=== PATIENT | male | born 1965 | race Caucasian/White ===

== ENCOUNTER 2016-12-10 10:46 | Inpatient (IN) | payer OTHER ==
[~2016-12-10] VITALS: Ht 175.3 cm; Wt 73.3 kg
[2016-12-10 12:20] LABS: BASOPHILS % (AUTO) 0.6 % (0.0-2.0); EOSINOPHILS % (AUTO) 1.7 % (1.0-6.0); HEMATOCRIT 49.6 % (41-53); HEMOGLOBIN 16.1 g/dL (13.5-17.5); MEAN CORPUSCULAR HEMOGLOBIN 31.2 pg (26.0-34.0); MEAN CORPUSCULAR HGB CONC 32.5 G/dL (31.0-37.0); MEAN CORPUSCULAR VOLUME 96 fL (80-100); MONOCYTES # (AUTO) 0.8 K/uL (0.1-1.0); MONOCYTES % (AUTO) 7.6 % (2.0-9.0); NEUTROPHILS % (AUTO) 70.1 % (40.0-70.0); PLATELET COUNT (AUTO) 301 K/uL (150-450); RED BLOOD CELL COUNT(AUTO) 5.18 MIL/uL (4.50-5.90); RED CELL DISTRIBUTION WIDTH 13.5 % (11.5-14.5)
[2016-12-10 12:28] LABS: ANION GAP 6 mmol/L (8-16); CARBON DIOXIDE 29 mmol/L (22-29); CHLORIDE 104 mmol/L (98-107); CREATININE 1.04 mg/dL (0.60-1.30); GLOMERULAR FILTR. RATE CALC > 60 mL/min (>60); INR 1.1 (0.9-1.1); PROTHROMBIN TIME 11.4 SEC (9.4-11.6); SODIUM SERUM 139 mmol/L (136-145); UREA NITROGEN, BLOOD 13 mg/dL (7-18)
[2016-12-10 12:44] LABS: B-TYPE NATRIURETIC PEPTIDE 415 pg/mL (0-100)
[2016-12-10 12:52] LABS: ALANINE AMINOTRANSFERASE 56 U/L (12-78); ALBUMIN 3.5 g/dL (3.4-5.0); ASPARTATE AMINOTRANSFERASE 25 U/L (15-37); CREATINE KINASE MB 4.7 ng/mL (0-5); CREATINE KINASE, TOTAL 175 U/L (39-308); TOTAL PROTEIN, SERUM 6.7 g/dL (6.4-8.2)
[2016-12-10] MEDS ORDERED: FUROSEMIDE 40 MG/4 ML VIAL IVP ONE (13:15)
[2016-12-10] MEDS ORDERED: ACETAMINOPHEN 325 MG TABLET PO PRN ×2 (14:15→16:00)
[2016-12-10] MEDS ORDERED: ONDANSETRON HCL 4 MG/2 ML VIAL IVP PRN ×2 (14:15→16:00)
[2016-12-10] MEDS ORDERED: 0.9% SODIUM CHLORIDE 10 ML SYRINGE IVP PRN (14:15)
[2016-12-10 14:34] LABS: APPEARANCE,URINE CLEAR (CLEAR); GLUCOSE, URINE (UA) NEGATIVE (NEGATIVE); KETONES,URINE NEGATIVE (NEGATIVE); LEUKOCYTE ESTERASE ,URINE NEGATIVE (NEGATIVE); OCCULT BLOOD,URINE NEGATIVE (NEGATIVE); PH,URINE 6.5 (5.0-8.0); PROTEIN,URINE POS 1+ (NEGATIVE)
[2016-12-10 14:36] LABS: ADD UA MICROSCOPIC NO
[2016-12-10] MEDS ORDERED: BISACODYL 10 MG RECTAL RECTAL SUPPOSITORY PR PRN (16:00)
[2016-12-10] MEDS ORDERED: MORPHINE SULFATE 2 MG/ML SYRINGE IVP PRN (16:00)
[2016-12-10] MEDS ORDERED: MAGNESIUM HYDROXIDE SUSPENSION 30 ML UDCUP PO PRN (16:00)
[2016-12-10] MEDS: HEPARIN SODIUM,PORCINE 5,000 UNITS/ML VIAL SQ SCH ×2 (16:11→23:27)
[2016-12-10 18:44] VITALS: BP 112/80
[2016-12-10 19:29] VITALS: BP 136/89
[2016-12-10] MEDS: FUROSEMIDE 20 MG/2 ML VIAL IVP SCH (20:40)
[2016-12-10] MEDS: ZOLPIDEM TARTRATE 5 MG TABLET PO PRN (20:40)
[2016-12-10] MEDS: DOCUSATE SODIUM 100 MG CAPSULE PO SCH (20:40)
[2016-12-10 23:00] VITALS: BP 100/75
[2016-12-10 23:26] VITALS: BP 100/75
[2016-12-11 04:41] VITALS: BP 123/75
[2016-12-11 07:07] VITALS: BP 121/89
[2016-12-11] MEDS: DOCUSATE SODIUM 100 MG CAPSULE PO SCH ×2 (08:11→21:03)
[2016-12-11] MEDS: FUROSEMIDE 20 MG/2 ML VIAL IVP SCH ×2 (08:12→21:03)
[2016-12-11] MEDS: ASPIRIN 81 MG EC TABLET PO SCH (08:12)
[2016-12-11] MEDS: HEPARIN SODIUM,PORCINE 5,000 UNITS/ML VIAL SQ SCH ×3 (08:12→23:19)
[2016-12-11] MEDS: PANTOPRAZOLE SODIUM 40 MG DR TABLET PO SCH (08:12)
[2016-12-11] MEDS: LISINOPRIL 5 MG TABLET PO SCH (08:12)
[2016-12-11] MEDS: NICOTINE 21 MG/24 HOUR PATCH TD SCH (09:00)
[2016-12-11 11:05] VITALS: BP 106/73
[2016-12-11 11:24] LABS: ABG A-A DIFF O2 35.3 mmHg (10-20.0); ABG HCO3 28.6 mmol/L (22.0-26.0); ABG OXYHEMOGLOBIN 93.8 % (94.0-100.0); ABG PCO2 39 mmHg (35-45); ABG PH 7.479 (7.35-7.450); TEMPERATURE, FAHRENHEIT, BG 97.8 FAHREN (96.0-98.6)
[2016-12-11 11:25] LABS: ALLEN TEST, BLOOD GAS Positive
[2016-12-11 16:03] VITALS: BP 100/61
[2016-12-11 20:24] VITALS: BP 105/75
[2016-12-11] MEDS: ZOLPIDEM TARTRATE 5 MG TABLET PO PRN (23:19)
[2016-12-12] VITALS (14 sets, daily range): BP systolic 90–123; BP diastolic 63–83
[2016-12-12 07:20] LABS: ALANINE AMINOTRANSFERASE 41 U/L (12-78); ALBUMIN 3.2 g/dL (3.4-5.0); ANION GAP 8 mmol/L (8-16); ASPARTATE AMINOTRANSFERASE 21 U/L (15-37); BILIRUBIN,TOTAL 0.5 mg/dL (0.1-1.0); CALCIUM, TOTAL 8.8 mg/dL (8.8-10.5); CARBON DIOXIDE 30 mmol/L (22-29); CHLORIDE 103 mmol/L (98-107); CREATININE 1.06 mg/dL (0.60-1.30); GLOMERULAR FILTR. RATE CALC > 60 mL/min (>60); POTASSIUM 3.8 mmol/L (3.5-5.1); SODIUM SERUM 141 mmol/L (136-145); TOTAL PROTEIN, SERUM 6.5 g/dL (6.4-8.2); UREA NITROGEN, BLOOD 19 mg/dL (7-18)
[2016-12-12] MEDS: HEPARIN SODIUM,PORCINE 5,000 UNITS/ML VIAL SQ SCH ×3 (08:00→23:31)
[2016-12-12] MEDS ORDERED: SODIUM BICARBONATE 50 MEQ/50 ML VIAL ONE (08:41)
[2016-12-12] MEDS ORDERED: LIDOCAINE HCL/PF 1% 30 ML VIAL ONE (08:41)
[2016-12-12] MEDS ORDERED: IOHEXOL 300 MG/ML 150 ML VIAL ONE (08:41)
[2016-12-12] MEDS ORDERED: HEPARIN SODIUM 1000 UNITS/NS 1,000 ML ONE (08:41)
[2016-12-12] MEDS ORDERED: FentaNYL CITRATE-PF 100 MCG/2 ML VIAL ONE (08:55)
[2016-12-12] MEDS ORDERED: MIDAZOLAM HCL 2 MG/2 ML VIAL ONE (08:55)
[2016-12-12] MEDS: PANTOPRAZOLE SODIUM 40 MG DR TABLET PO SCH (09:00)
[2016-12-12] MEDS: LISINOPRIL 5 MG TABLET PO SCH (09:00)
[2016-12-12] MEDS: ASPIRIN 81 MG EC TABLET PO SCH (09:00)
[2016-12-12] MEDS: DOCUSATE SODIUM 100 MG CAPSULE PO SCH ×2 (09:00→20:56)
[2016-12-12] MEDS: FUROSEMIDE 20 MG/2 ML VIAL IVP SCH (09:00)
[2016-12-12] MEDS: NICOTINE 21 MG/24 HOUR PATCH TD SCH (09:00)
[2016-12-12] MEDS ORDERED: SODIUM CHLORIDE 0.9% 500 ML IV ONE (09:13)
[2016-12-12] MEDS ORDERED: FentaNYL CITRATE-PF 100 MCG/2 ML VIAL IVP ONE ×2 (09:14→09:19)
[2016-12-12] MEDS ORDERED: MIDAZOLAM HCL 2 MG/2 ML VIAL IVP ONE ×2 (09:14→09:19)
[2016-12-12] MEDS ORDERED: HEPARIN SODIUM 1000 UNITS/NS 1,000 ML IARTER ONE (09:19)
[2016-12-12] MEDS ORDERED: LIDOCAINE 1% 30 ML/SOD BICARB 8.4% 4 ML SQ ONE (09:19)
[2016-12-12] MEDS ORDERED: VERAPAMIL HCL 2.5 MG/ML 2 ML VIAL ONE (09:19)
[2016-12-12] MEDS ORDERED: NITROGLYCERIN 50 MG/D5% WATER 0 ML ONE (09:20)
[2016-12-12] MEDS ORDERED: IOHEXOL 300 MG/ML 150 ML VIAL IARTER ONE (09:35)
[2016-12-12] MEDS ORDERED: FUROSEMIDE 40 MG/4 ML VIAL IVP ONE (10:00)
[2016-12-12] MEDS ORDERED: FUROSEMIDE 40 MG/4 ML VIAL ONE (10:08)
[2016-12-12] MEDS: HYDROCODONE/ACETAMINOPHEN 5-325 MG TABLET PO PRN (20:20)
[2016-12-12] MEDS: ZOLPIDEM TARTRATE 5 MG TABLET PO PRN (20:55)
[2016-12-12] MEDS: FUROSEMIDE 40 MG/4 ML VIAL IVP SCH (20:55)
[2016-12-13] VITALS: BP 109/79
[2016-12-13 04:48] VITALS: BP 125/81
[2016-12-13 07:12] VITALS: BP 110/78
[2016-12-13] MEDS: HEPARIN SODIUM,PORCINE 5,000 UNITS/ML VIAL SQ SCH ×3 (08:00→16:00)
[2016-12-13] MEDS: FUROSEMIDE 40 MG/4 ML VIAL IVP SCH (08:45)
[2016-12-13] MEDS: LISINOPRIL 5 MG TABLET PO SCH (08:46)
[2016-12-13] MEDS: ASPIRIN 81 MG EC TABLET PO SCH (08:46)
[2016-12-13] MEDS: PANTOPRAZOLE SODIUM 40 MG DR TABLET PO SCH (08:46)
[2016-12-13] MEDS: NICOTINE 21 MG/24 HOUR PATCH TD SCH (08:48)
[2016-12-13] MEDS: DOCUSATE SODIUM 100 MG CAPSULE PO SCH (08:49)
[2016-12-13] MEDS ORDERED: LISI-622 PO (10:21)
[2016-12-13] MEDS ORDERED: FURO20 PO (10:21)
[2016-12-13] MEDS ORDERED: ASPI-1093 PO (10:21)
[2016-12-13] MEDS: HYDROCODONE/ACETAMINOPHEN 5-325 MG TABLET PO PRN (10:49)
[2016-12-13 10:54] VITALS: BP 109/83
[2016-12-13] MEDS ORDERED: CARV3.1262 PO (12:02)
[2016-12-13 16:29] VITALS: BP 114/80
== END 2016-12-13 19:45 | disposition home or self-care (01) | DRG 191 ==
LOC: EMS 10:48 → 5S 17:09
PROVIDERS: ADMIT Internal Medicine; ATTEND Internal Medicine
PROC: 4A023N8 Measurement of Cardiac Sampling and Pressure, Bilateral, Percutaneous Approach (ICD-10-PCS; principal; 2016-12-12)
PROC: B2111ZZ Fluoroscopy of Multiple Coronary Arteries using Low Osmolar Contrast (ICD-10-PCS; 2016-12-12)
PROC: B2151ZZ Fluoroscopy of Left Heart using Low Osmolar Contrast (ICD-10-PCS; 2016-12-12)
PROC: B41F1ZZ Fluoroscopy of Right Lower Extremity Arteries using Low Osmolar Contrast (ICD-10-PCS; 2016-12-12)
DX: I11.0 Hypertensive heart disease with heart failure (principal); I42.0 Dilated cardiomyopathy; I27.2 Other secondary pulmonary hypertension; I50.21 Acute systolic (congestive) heart failure; E44.1 Mild protein-calorie malnutrition; F32.9 Major depressive disorder, single episode, unspecified; E78.5 Hyperlipidemia, unspecified; Z68.23 Body mass index [BMI] 23.0-23.9, adult
CPT/HCPCS: 82805; 93005; 93306; 93460; 96374; 99285; J1644; J1940; J2250; J3010; J3490; Q9967